=== PATIENT | female | born 1950 | race Caucasian/White ===

== ENCOUNTER → 2021-08-17 09:47 | Outpatient (CLI) | payer MEDICARE, SELFPAY | PROVIDERS: PCP Internal Medicine; Referring Provider Internal Medicine; Visit Provider Internal Medicine | DX: Z78.0 Asymptomatic menopausal state (principal); M85.88 Other specified disorders of bone density and structure, other site | CPT/HCPCS: 77080 ==

== ENCOUNTER → 2022-01-22 08:32 | Outpatient (CLI) | payer MEDICARE, SELFPAY ==
--- NOTE | 2022-01-22 | DI.MRI.S_ITS ---
PROCEDURE: MR CERVICAL SPINE WO CON INDICATIONS: Other cervical disc degeneration TECHNIQUE: Noncontrast sagittal T1 spin echo and T2 fast spin echo, sagittal STIR, foraminal oblique sagittal T2 fast spin echo, and axial gradient echo or T2 fast spin echo through the cervical spine. COMPARISON: [facility], CR, XR CERVICAL SPINE 2 OR 3 VIEWS, 04/16/2019, 14:41. FINDINGS: Image quality: Excellent. Alignment and Curvature: There is approximately 2 millimeters of C3-C4 anterolisthesis. Bone Marrow: Minimal Modic type 2 reactive endplate changes noted adjacent to the C4-C5, C5-C6 and C6-C7 discs. Spinal Cord: Visualized spinal cord has normal size and signal. No cerebellar tonsillar herniation. Paraspinous Soft Tissues: No paravertebral masses. Prevertebral soft tissues are normal in thickness. Incidental note made of right common carotid artery follow medial course through the retropharyngeal space. C2-C3: Loss of disc signal. Mild bilateral facet hypertrophy. No central stenosis. No neural foraminal narrowing. No neural compression. C3-C4: Loss of disc signal and height. Mild, diffuse disc bulge. Small central disc protrusion. Mild left facet hypertrophy. Moderate left uncovertebral joint hypertrophy. Mild narrowing of the central canal. Mild right and moderate left neural foraminal narrowing. No neural compression. C4-C5: Loss of disc signal and height. Mild to moderate diffuse disc bulge. Small central disc protrusion. Mild bilateral facet hypertrophy. Moderate right and mild left uncovertebral joint hypertrophy. Mild narrowing of the central canal. Moderate right and mild left neural foraminal narrowing. No neural compression. C5-C6: Loss of disc signal and height. Mild, diffuse disc bulge. Mild bilateral facet hypertrophy. Moderate right and mild left uncovertebral joint hypertrophy. Mild narrowing of the central canal. Moderate right neural foraminal narrowing. No neural compression. C6-C7: Loss of disc signal and height. Mild to moderate diffuse disc bulge. Moderate bilateral uncovertebral joint hypertrophy. Mild narrowing of the central canal. Mild to moderate bilateral neural foraminal narrowing. No neural compression. C7-T1: Loss of disc signal and height. Moderate, diffuse disc bulge. Small right central disc protrusion. Mild bilateral facet hypertrophy. Mild narrowing of the central canal. No neural foraminal narrowing. No neural compression. IMPRESSION: 1. Multilevel degenerative disc disease. 2. Multilevel facet and uncovertebral arthropathy. 3. No severe central canal narrowing. 4. No severe neural foraminal narrowing. 5. No neural compression. Dictated by: Cecelia Chacon MD, PhD on 01/22/2022 at 10:10 Approved by: Cecelia Chacon MD, PhD on 01/22/2022 at 10:16
== END ==
PROVIDERS: PCP Internal Medicine; Referring Provider Internal Medicine; Visit Provider Internal Medicine
DX: M50.11 Cervical disc disorder with radiculopathy, high cervical region (principal); M47.22 Other spondylosis with radiculopathy, cervical region
CPT/HCPCS: 72141